=== PATIENT | male | born 1950 | race Caucasian/White ===

== ENCOUNTER 2017-05-06 05:27 | Emergency (ER) | payer OTHER ==
[~2017-05-06] VITALS: Ht 172.7 cm; Wt 75.0 kg
[2017-05-06] MEDS ORDERED: SOD CHLORIDE 0.9% 1,000 ML IV STA (05:29)
[2017-05-06] MEDS ORDERED: morphine 4 MG/ML VIAL IV STA (05:29)
[2017-05-06] MEDS ORDERED: ONDANSETRON 4 MG INJ IV STA ×2 (05:29→08:02)
[2017-05-06 05:30] VITALS: Ht 172.7 cm; Wt 75.0 kg
[2017-05-06] MEDS ORDERED: morphine 4 MG/ML VIAL ONE (05:44)
[2017-05-06] MEDS ORDERED: ONDANSETRON 4 MG INJ ONE (05:44)
[2017-05-06 05:48] LABS: ADD SCAN DIFF NO
[2017-05-06 05:50] LABS: BASOPHILS % 0.2 % (0.0-2.0); EOSINOPHILS # 0.5 10^3/ul (0.0-0.5); EOSINOPHILS % 5.5 % (0.0-7.0); LYMPHOCYTES # 2.7 10^3/ul (0.8-2.9); MEAN CORPUSCULAR HEMOGLOBIN 31.6 pg (29.0-33.0); MEAN CORPUSCULAR HGB CONC 33.3 g/dl (32.0-37.0); MEAN CORPUSCULAR VOLUME 94.7 fl (82.0-101.0); MEAN PLATELET VOLUME 9.5 fl (7.4-10.4); MONOCYTE # 0.7 10^3/ul (0.3-0.9); MONOCYTES % 7.7 % (0.0-11.0); NEUTROPHIL # 5.1 10^3/ul (1.6-7.5); NEUTROPHILS % 56.3 % (39.0-77.0); PLATELET COUNT 299 10^3/UL (140-415); RED CELL DISTRIBUTION WIDTH 12.8 % (11.5-14.5); WHITE BLOOD COUNT 9.1 10^3/ul (4.8-10.8)
[2017-05-06] MEDS ORDERED: FAMOTIDINE 20 MG INJ IV STA (05:59)
[2017-05-06] MEDS ORDERED: IBUP400T22 PO (06:07)
[2017-05-06 06:16] LABS: INR 0.95; PROTIME 12.7 Sec (12.2-14.2)
[2017-05-06 06:17] LABS: PARTIAL THROMBOPLASTIN TIME 30.2 Sec (25.0-35.0)
--- NOTE | 2017-05-06 06:25 | RADRPT ---
PROCEDURE: CT Abdomen and pelvis without contrast. CLINICAL INDICATION: Flank pain TECHNIQUE: CT scan of the abdomen and pelvis without contrast was performed on a multidetector hig h-resolution CT scan. . Coronal and sagittal reformatted images were obtained from the axial [facility] e images. Standard CT scan of the abdomen pelvis without contrast protocols were performed. The total exam CTDI equals 11.34 mGy and the total exam DLP equals 755.02 mGy-cm. One or more of the following dose reduction techniques were used: - Automated exposure control. - Adjustment of the mA and/or kV according to patient size. Use of iterative reconstruction technique. COMPARISON: None. FINDINGS: The kidneys are normal in size without calcified renal calculi or hydronephrosis bilaterally. There is 1.7 cm inhomogeneous low density mass involving the lateral right inferior kidney. Malignancy c annot be excluded and recommend a follow-up MRI of the kidneys with without contrast for renal mass protocols for further evaluation. No other definite intra renal masses. No evidence of calcified u reteral calculi or ureteral dilatation. The urinary bladder is partially contracted with urinary bl adder wall thickening likely due to contracted state however cystitis cannot be excluded. The prost ate is unremarkable. Negative for intra-abdominal free fluid, free air, abscesses or lymphadenopathy. There is atheroscl erosis of the aorta and iliac arteries but no aneurysm. The liver is normal in size. There is 8 mm low density in the dome of the right lobe of the liver l ikely a cyst. No other hepatic lesions. Spleen pancreas and adrenal glands are unremarkable. Gall bladder is unremarkable without evidence of biliary ductal dilation. The stomach, small bowel, large bowel and appendix are unremarkable. There is a fat containing left inguinal hernia without herniated bowel or strangulation. The lung bases are unremarkable. There are degenerative changes of the lower thoracic and lumbar sp ine without acute osseous findings are osteoblastic/osteolytic lesions. IMPRESSION: 1. 1.7 cm inhomogeneous low density mass involving the lateral right inferior kidney and malignancy cannot be excluded. Recommend follow-up MRI of the kidneys without contrast with renal mass protoc ols for further evaluation. No other intra renal masses. No evidence of calcified urinary calculi or obstructive uropathy. 2. No evidence gastrointestinal disease. Unremarkable appendix. 3. Negative for intra-abdominal free air fluid abscesses lymphadenopathy. 4. Left inguinal fat-containing hernia without herniated bowel or strangulation. RPTAT:AAJJ Physician Rocky Date Time Electronically viewed and signed by Laurel Dick Physician on 05/06/2017 06:25 DARBY/
--- NOTE | 2017-05-06 06:30 | ERA ---
ER Documentation Chief Complaint Date/Time DATE: 05/06/17 TIME: 06:05 Chief Complaint HPI This 67-year-old male with no past medical history or past surgical history that presents to the emergency department complaining of epigastric pain. The patient indicates that the pain has been present since late yesterday evening, 12 hours prior to arrival. The patient indicates that the pain began in the epigastric region radiated to the right upper quadrant into the right flank region. The patient indicates the pain is 10 out of 10 in intensity and is a cramping like sensation. He had one episode of nonbloody nonbilious emesis. There is no exacerbating factors. The patient did indicate he took ibuprofen which improved the pain but did not completely resolve the pain. The patient denies any chest pain or pressure that radiates to the neck arm back or jaw. The patient denies any shortness of breath at rest or exertion. The patient indicates he has had multiple similar episodes over the past 5 years. The patient was seen and evaluated at [facility] last year and admitted for 5 days. He stated the pain felt exactly the same. They performed a significant workup which included cardiac angiogram, CT scan, upper endoscopy, biopsies and all were found to be negative. The patient indicates he moved from [facility] 5 years ago to the [facility] and was concerned that he had a remote diagnosis Mediterranean fever. Patient however denies any fever shaking or chills. He has had no frequency urgency or dysuria. No hemoptysis no hematemesis no melanotic stools. ROS All systems reviewed and are negative except as per history of present illness. Medications Home Meds Reported Medications Ibuprofen* (Ibuprofen*) 400 Mg Tablet, 800 MG PO Q6H Y for PAIN, TAB 05/06/17 Allergies Allergies: Coded Allergies: No Known Drug Allergies (Verified Allergy, Unknown, 05/06/17) Physical Exam Vitals Vital Signs Date Time Temp Pulse Resp B/P Pulse Ox O2 Delivery O2 Flow Rate FiO2 05/06/17 05:30 98.7 78 20 120/87 98 Physical Exam Constitutional:Well-developed. Well-nourished. HEENT:Normocephalic. Atraumatic.Pupils were equal round reactive to light. Moist mucous membranes.No tonsillar exudates. Neck: No nuchal rigidity. No lymphadenopathy. No posterior cervical spine tenderness or step-offs. Respiratory: Not using accessory muscles of respiration.Lungs were clear to auscultation bilaterally. No rhonchi. No rales. No wheezing. Cardiovascular: Regular rate regular rhythm.No murmurs. No rubs were appreciated.S1, S2 normal. Distal pulses are palpable 2+ bilaterally. GI: Abdomen was soft. Tenderness in the epigastric region and right upper quadrant with negative Pierre sign. No tenderness in the right lower quadrant over McBurney's point. Psoas sign negative. Obturator sign negative. Positive right CVA tenderness peer Non Distended. No pulsatile abdominal masses or bruits. No rebound. No guarding. Bowel sounds were present and normal. Muscle skeletal: Full range of motion of both the upper and lower extremities bilaterally.Normal muscle tone.No assymetrical calf tenderness or swelling. Skin: No petechia, no purpura. No lesions on the palms or the soles of the feet. No maculopapular rash. NEURO: Patient was alert, awake, orientated x3.No facial droop. Gait observed and normal with no ataxia.Speech had regular rate and rhythm. No focal neurological deficits. Result Diagram: 05/06/17 0536 Results 24 hrs Laboratory Tests Test 05/06/17 05:36 White Blood Count 9.110^3/ul Red Blood Count 3.8010^6/ul Hemoglobin 12.0g/dl Hematocrit 36.0% Mean Corpuscular Volume 94.7fl Mean Corpuscular Hemoglobin 31.6pg Mean Corpuscular Hemoglobin Concent 33.3g/dl Red Cell Distribution Width 12.8% Platelet Count 26960^3/UL Mean Platelet Volume 9.5fl Neutrophils % 56.3% Lymphocytes % 30.0% Monocytes % 7.7% Eosinophils % 5.5% Basophils % 0.2% Nucleated Red Blood Cells % 0.0/100WBC Neutrophils # 5.110^3/ul Lymphocytes # 2.710^3/ul Monocytes # 0.710^3/ul Eosinophils # 0.510^3/ul Basophils # 0.010^3/ul Nucleated Red Blood Cells # 0.010^3/ul Prothrombin Time 12.7Sec Prothrombin Time Ratio 1.0 INR International Normalized Ratio 0.95 Activated Partial Thromboplast Time 30.2Sec Current Medications Medications (Trade) Dose Ordered Sig/Mikey Route PRN Reason Start Time Stop Time Status Last Admin Dose Admin Sodium Chloride (NS) 1,000 ml @ 1,000 mls/hr Q1H STAT IV 05/06/17 05:29 05/06/17 06:28 DC 05/06/17 05:46 Morphine Sulfate (morphine) 4 mg ONCE STAT IV 05/06/17 05:29 05/06/17 05:34 DC 05/06/17 05:46 Ondansetron HCl (Zofran Inj) 4 mg ONCE STAT IV 05/06/17 05:29 05/06/17 05:34 DC 05/06/17 05:46 Famotidine (Pepcid Iv) 20 mg ONCE STAT IV 05/06/17 05:59 05/06/17 06:01 DC Procedures/MDM The patient presented to the emergency department with epigastric pain. My differential diagnosis included but was not limited to abdominal aortic aneurysm , choledocholithiasis, gallstone ileus, renal colic, pyelonephritis, pancreatitis, peptic ulcer disease, atypical myocardical infarction, mesenteric ischemia, GERD, pulmonary infarction. The patient was placed on a surveillance monitor, continuous pulse oximetry and IV access was established by nursing staff. An EKG was obtained to rule out myocardial ischemia. There was no elevation of LFTs to suggest ductal obstruction, cholangitis, cholecystiitis or hepatitis. Given that the urinalysis did not show bilirubinuria, my suspicion for common duct obstruction or hepatitis was low. 12 Lead EKG tracing ordered and reviewed by myself showed: Normal sinus rhythm of 63 bpm and no arrhythmia. VT interval normal. QRS duration normal. No ST segment elevation No ST segment depression. No changes consistent with acute ischemia. Given the patient's significant discomfort I do feel is necessary to repeat a CT scan even though the patient had one one year ago. The CT scan of the abdomen and pelvis without contrast ordered and reviewed by myself and indicated the followin. 1.7 cm inhomogeneous low density mass involving the lateral right inferior kidney and malignancy cannot be excluded. Recommend follow-up MRI of the kidneys without contrast with renal mass protocols for further evaluation. No other intra renal masses. No evidence of calcified urinary calculi or obstructive uropathy. 2. No evidence gastrointestinal disease. Unremarkable appendix. 3. Negative for intra-abdominal free air fluid abscesses lymphadenopathy. 4. Left inguinal fat-containing hernia without herniated bowel or strangulation. I informed the patient and the family of his findings and given the severity of his pain I did feel is necessary to admit the patient for immediate MRI of the kidneys without contrast and renal protocols as there was concern for possible malignancy. The patient is capitated to [facility]. I did feel the patient was stable for transfer as his pain had improved but did not completely resolve after receiving IV morphine. Departure Diagnosis: Primary Impression: Flank pain Additional Impression: Renal mass of unknown nature Condition: Serious JAYDEN LOPEZ May 06, 2017 06:15
[2017-05-06 06:33] LABS: ALBUMIN 3.9 g/dl (3.3-4.9); ALBUMIN/GLOBULIN RATIO 1.05; BILIRUBIN,INDIRECT 0.3 mg/dl (0-1.1); BILIRUBIN,TOTAL 0.3 mg/dl (0.2-1.3); CALCIUM 9.3 mg/dl (8.4-10.2); CREATININE 0.93 mg/dl (0.61-1.24); POTASSIUM 4.1 mmol/L (3.5-5.1); TOTAL PROTEIN 7.6 g/dl (6.1-8.1)
--- NOTE | 2017-05-06 06:58 | RADRPT ---
PROCEDURE: Chest. CLINICAL INDICATION: Chest pain. TECHNIQUE: Single frontal view of the chest was obtained. COMPARISON: None. FINDINGS: The cardiac silhouette is within normal limits. The aortic arch is unremarkable. There is no focal consolidation, vascular congestion or pleural effusion. There is no pneumothorax. IMPRESSION: No evidence for active cardiopulmonary disease. .Kofi Robbins MD, MD Date Time Electronically viewed and signed by .Kofi Robbins MD, on 05/06/2017 06:58 .T/
[2017-05-06 07:28] LABS: AMYLASE 92 U/L (11-123)
[2017-05-06 07:42] LABS: TROPONIN-I < 0.012 ng/ml (0.00-0.12)
[2017-05-06] MEDS ORDERED: HYDROmorphONE 1 MG/ML SYG IV STA (08:02)
[2017-05-06] MEDS ORDERED: BELLADONNA/PHENOBARBITAL TAB PO STA (08:02)
[2017-05-06] MEDS ORDERED: LIDOCAINE/MYLANTA 40 ML BTL PO STA (08:02)
[2017-05-06 09:04] VITALS: BP 103/69; PULSE 53; RESP 10; TEMP 98
== END 2017-05-06 09:45 | disposition left against medical advice (07) ==
LOC: E/R 05:27
DX: R10.13 Epigastric pain (principal); N28.89 Other specified disorders of kidney and ureter
CPT/HCPCS: 36415; 71010; 74176; 80053; 82150; 83690; 84484; 85025; 85610; 85730; 93005; 96374; 96375; 96376; J1170; J2270; J2405; J7030; Z7502; Z7610